=== PATIENT | female | born 1980 | race Caucasian/White ===

== ENCOUNTER 2024-04-21 07:59 | Outpatient (CLI) | payer BC | END 2024-04-21 08:00 | disposition home or self-care (01) | LOC: CSHMRI 07:59 | PROVIDERS: ATTEND Nurse Practitioner Family | DX: M79.671 Pain in right foot (principal); G89.29 Other chronic pain; M19.071 Primary osteoarthritis, right ankle and foot; M72.2 Plantar fascial fibromatosis ==

== ENCOUNTER 2024-04-21 13:38 | Outpatient (CLI) | payer BC | END 2024-04-21 13:39 | disposition home or self-care (01) | LOC: CSHMAMMO 13:38 | PROVIDERS: ATTEND Nurse Practitioner Family | DX: Z12.31 Encounter for screening mammogram for malignant neoplasm of breast (principal) | CPT/HCPCS: 77063; 77067 ==